=== PATIENT | female | born 1975 ===

== ENCOUNTER 2017-01-08 20:03 | Emergency (ER) | payer MEDICAID ==
--- NOTE | 2017-01-08 21:42 | OBHP ---
Datetime: 01/08/2017 21:11 IP Adm Impression: , intrauterine ; No Active Labor IP Chief Complaint Other: abdominal pain IP Admit Plan: Discharge home Admit Comment, IP Provider: Patient is a 41 year old at 29 weeks and 6 days with an EED ( ) by US and LMP (06/14/2016), who presents with complaints of upper abdominal pain that started 4 hours before coming to the [facility]. Patient stated that she has been lifting some heavy boxes during day due to the nature of her job. Patient denies contraction, vaginal bleeding, abnormal vaginal di scharge and leakage of fluid. 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 1. Stable, Afebrile 2. EFM and TOCO: Reassuring 3. Possible musculoskeletal pain : OTC tylenol for pain control 4. Precautions instructions giving: Minimize heavy lifting. 5. F/u in the clinic in the am 6. Discharge patient home 7. Plans discussed with attending Estelle Soriano DO, PGY-1 OB attending Patient examined.agree with claudio pierre,. assessment and plan Extremities - PN: Normal Abdomen - PN: Normal Lungs - PN: Normal Heart - PN: Normal HEENT - PN: Normal General - PN: Normal Contraction Comments Provider: none Comments, ACOG Physical Exam: Gen: NAD, AAOX3 Cardio: RRR, Normal S1, S2 Pulm: CTA bilaterally Abdomen: Soft, gravid Ext: No clubbing, no cyanosis and no edema Cervical Examination: Closed and posterior] EFM: 150, moderate variability, + accels, - decels TOCO: None Gestation - Est Wks by US: 29.5 EGA AdmitDate IP: 29.5 Vital Signs Provider: Reviewed; Within Normal Limits IP Chief Complaint: Other FHR Category Provider Fetus A: Category I Dilatation, Provider: 0
[2017-01-09 01:35] VITALS: BP 107/65; PULSE 87; RESP 18; TEMP 98.4
== END 2017-01-08 21:25 | disposition home or self-care (01) ==
LOC: C.EROB 20:03
DX: O26.893 Other specified pregnancy related conditions, third trimester (principal); R10.10 Upper abdominal pain, unspecified; Z3A.29 29 weeks gestation of pregnancy